=== PATIENT | female | born 1940 | race Caucasian/White ===

== ENCOUNTER 2016-12-17 15:07 | Emergency (ER) | payer OTHER ==
[~2016-12-17] VITALS: Ht 162.6 cm; Wt 79.8 kg
[2016-12-17 15:10] VITALS: BP 154/78; PULSE 71; RESP 17; TEMP 97.5; O2SAT 99
[2016-12-17 16:38] VITALS: BP 133/74; PULSE 76; RESP 17; TEMP 97.5
[2016-12-17 16:51] VITALS: O2SAT 99
== END 2016-12-17 16:38 | disposition home or self-care (01) ==
LOC: SED 15:46
DX: S93.401A Sprain of unspecified ligament of right ankle, initial encounter (principal); J45.909 Unspecified asthma, uncomplicated; K21.9 Gastro-esophageal reflux disease without esophagitis; I10 Essential (primary) hypertension; E03.9 Hypothyroidism, unspecified; Z86.73 Personal history of transient ischemic attack (TIA), and cerebral infarction without residual deficits; Z91.02 Food additives allergy status; X58.XXXA Exposure to other specified factors, initial encounter; Y93.01 Activity, walking, marching and hiking; Y92.89 Other specified places as the place of occurrence of the external cause; Y99.8 Other external cause status
CPT/HCPCS: 99284

== ENCOUNTER 2019-01-06 16:51 | Emergency (ER) | payer OTHER ==
[~2019-01-06] VITALS: Ht 162.6 cm; Wt 81.6 kg
[2019-01-06 17:05] VITALS: BP_SYST 202
[2019-01-06] MEDS ORDERED: PROCHLORPERAZINE EDISYLATE 10 MG/2 ML VIAL IVP ONE (17:45)
[2019-01-06] MEDS ORDERED: fentaNYL CITRATE/PF 100 MCG/2 ML AMP IVP ONE (18:30)
[2019-01-06] MEDS ORDERED: cloNIDine HCL 0.1 MG TABLET PO ONE (18:30)
[2019-01-06] MEDS ORDERED: hydrALAZINE HCL 20 MG/ML VIAL IVP ONE (18:30)
[2019-01-06 19:35] VITALS: BP_SYST 148
== END 2019-01-06 19:35 | disposition home or self-care (01) ==
LOC: SED 16:51
DX: R51 Headache (principal); J45.909 Unspecified asthma, uncomplicated; K21.9 Gastro-esophageal reflux disease without esophagitis; I10 Essential (primary) hypertension; E03.0 Congenital hypothyroidism with diffuse goiter; Z90.710 Acquired absence of both cervix and uterus; Z91.041 Radiographic dye allergy status; Z86.73 Personal history of transient ischemic attack (TIA), and cerebral infarction without residual deficits
CPT/HCPCS: 70450; 96374; 96375; 99284; J0360; J0780; J3010

== ENCOUNTER 2020-03-16 17:23 | Emergency (ER) | payer OTHER ==
[~2020-03-16] VITALS: Ht 162.6 cm; Wt 80.3 kg
[2020-03-16 17:33] VITALS: BP_SYST 172
[2020-03-16] MEDS ORDERED: KETOROLAC TROMETHAMINE 60 MG/2 ML VIAL IM ONE (17:45)
[2020-03-16 17:56] LABS: BASOPHILS # (AUTO) 0.1 K/uL (0.0-0.2); BASOPHILS % (AUTO) 0.7 % (0.0-2.0); EOSINOPHILS # (AUTO) 0.2 K/uL (0.0-0.4); EOSINOPHILS % (AUTO) 2.3 % (0.0-4.0); HEMATOCRIT 39.7 % (36-48); LYMPHOCYTES # (AUTO) 3.3 K/uL (1.0-5.5); MEAN CORPUSCULAR HEMOGLOBIN 28 pg (27-31); MEAN CORPUSCULAR HGB CONC 33 % (32-36); MEAN CORPUSCULAR VOLUME 85 fL (79.0-98.0); MONOCYTES # (AUTO) 0.7 K/uL (0.0-1.0); MONOCYTES % (AUTO) 8.4 % (1.7-9.3); NEUTROPHILS # (AUTO) 3.8 K/uL (1.8-7.7); NEUTROPHILS % (AUTO) 47.6 % (40.0-70.0); PLATELET COUNT (AUTO) 280 K/uL (130-430); RED BLOOD CELL COUNT(AUTO) 4.65 MIL/uL (4.2-6.2); RED CELL DISTRIBUTION WIDTH 15.8 % (9.0-15.0)
[2020-03-16 18:06] LABS: ANION GAP 5 (5-15); CALCIUM 8.4 mg/dL (8.4-11.0); CHLORIDE 106 mmol/L (98-107); CREATININE 1.19 mg/dL (0.55-1.30); GLUCOSE 115 mg/dL (70-99); POTASSIUM 4.7 mmol/L (3.5-5.1); SODIUM SERUM 138 mmol/L (136-145); UREA NITROGEN, BLOOD 12 mg/dL (8-21)
[2020-03-16 18:08] LABS: PROTHROMBIN TIME 9.7 SECS (9.5-12.5)
[2020-03-16 18:10] LABS: ALANINE AMINOTRANSFERASE 64 U/L (12-78); ALBUMIN 3.5 g/dL (3.4-4.8); ASPARTATE AMINOTRANSFERASE 43 U/L (10-37); TOTAL BILIRUBIN 0.3 mg/dL (0.0-1.0); URIC ACID 5.2 mg/dL (2.4-7.0)
[2020-03-16 19:08] LABS: ERYTHROCYTE SEDIMENTATION RATE 13 MM/HR (0-20)
[2020-03-16 21:46] VITALS: BP_SYST 161
== END 2020-03-16 21:46 | disposition home or self-care (01) ==
LOC: SED 17:23
DX: M13.862 Other specified arthritis, left knee (principal); J45.909 Unspecified asthma, uncomplicated; K21.9 Gastro-esophageal reflux disease without esophagitis; I10 Essential (primary) hypertension; N28.9 Disorder of kidney and ureter, unspecified; E03.9 Hypothyroidism, unspecified; Z86.73 Personal history of transient ischemic attack (TIA), and cerebral infarction without residual deficits; Z88.8 Allergy status to other drugs, medicaments and biological substances
CPT/HCPCS: 36415; 73560-TC; 80053; 84550-TC; 85025; 85610-TC; 85651-TC; 85730-TC; 86140; 96372; 99284; J1885